=== PATIENT | male | born 1950 | race Caucasian/White ===

== ENCOUNTER 2016-11-17 12:20 | Inpatient (IN) | payer MEDICARE, BC ==
[2016-11-17 13:16] LABS: % BASOPHILS 0.2 % (0.0-2.0); % EOSINOPHILS 2.3 % (0.0-5.0); % LYMPHOCYTES 19.5 % (20.0-50.0); % MONOCYTES 7.6 % (2.0-10.0); % NEUTROPHILS 70.4 % (40.0-80.0); HEMATOCRIT 46.4 % (39.0-49.0); HEMOGLOBIN 15.6 gm/dL (12.6-17.4); MEAN CELL VOLUME 90.1 fl (80-99); MEAN CORPUSCULAR HEMOGLOBIN 30.2 pg (27.0-31.0); MEAN CORPUSCULAR HGB CONC 33.6 pg (28.0-36.0); MEAN PLATELET VOLUME 8.2 fl; NEUTROPHILE ABSOLUTE 6.2 Th/cmm (1.8-8.0); PLATELET COUNT 237 Th/cmm (150-400); RED BLOOD COUNT 5.15 Mil/cmm (3.80-5.80); RED CELL DISTRIBUTION WIDTH 12.3 % (11.5-20.0); WHITE BLOOD COUNT 8.8 Th/cmm (4.8-10.8)
[2016-11-17 13:25] LABS: ANION GAP 6.7 (7.0-16.0); BUN - UREA NITROGEN 15 mg/dL (7-25); BUN/CREATININE RATIO 18.8; CALCIUM SERUM 9.3 mg/dL (8.6-10.3); CARBON DIOXIDE 25.5 mEq/L (21.0-31.0); CHLORIDE 100 mEq/L (98-107); CHOLESTEROL 194 mg/dL (<200); CREATININE - SERUM 0.8 mg/dL (0.7-1.3); GLUCOSE 375 mg/dL (70-105); POTASSIUM SERUM 4.2 mEq/L (3.5-5.1); SODIUM SERUM 128 mEq/L (136-145); TRIGLYCERIDES 153 mg/dL (<150)
--- NOTE | 2016-11-17 14:22 | ED Physician Chart ---
Chief Complaint/HPI - Patient Information Date Seen:: 11/17/16 Time Seen:: 14:10 Chief Complaint:: medication non compliance History of Present Illness:: Patient states he has been refusing some of his medications for the last 2 weeks. The transfer document states he's been refusing medications for the last 2 months. Patient states he has been refusing some of his medications because they cause gastrointestinal upset. Allergies:: Allergies Allergy/AdvReac Type Severity Reaction Status Date / Time ampicillin Allergy RASH Verified 11/17/16 12:39 Vitals:: Vital Signs - 8 hr 11/17/16 11/17/16 12:25 13:13 Temp 98.0 F 98.1 F HR 90 74 RR 20 13 BP 183/95 136/71 O2 Sat % 98 99 Historian:: Patient Review:: Nurse's Note Reviewed Review of Systems - Review of Systems General/Constitutional: No fever, No chills Skin: No skin lesions Head: No headache Eyes: No loss of vision, No diplopia ENT: No earache, No sore throat Neck: No neck pain, No thyromegaly Cardio Vascular: No chest pain, No palpitations Pulmonary: No SOB GI: No nausea, No vomiting, Pain G/U: No dysuria Musculoskeletal: No bone or joint pain, No back pain, No muscle pain Psychiatric: Prior psych history Past Medical History - Past Medical History Past Medical History: HTN, Dyslipidemia, Other (tinnitus; diet noncompliance; cataract; polyneuropathy; atherosclerotic heart disease; osteoarthritis; chronic pain type 2 diabetes; hyperlipidemia; obesity; schizoaffective disorder ; bipolar disorder; medication noncompliance; dyspepsia) Family History: Diabetes Melitus, Other (grandmother had diabetes) Social History: Non Smoker, Alcohol Surgical History: other (fusion fourth-fifth lumbar vertebrae) Psychiatricy History: Bipolar, Other (schizoaffective disorder) Medication: Reviewed Labs/Radiology/EKG Results - Lab Results Results: Laboratory Tests 11/17/16 11/17/16 11/17/16 13:00 13:00 13:00 WBC 8.8 RBC 5.15 Hgb 15.6 Hct 46.4 MCV 90.1 MCH 30.2 MCHC Differential 33.6 RDW 12.3 Plt Count 237 MPV 8.2 Neutrophils % 70.4 Lymphocytes % 19.5 L Monocytes % 7.6 Eosinophils % 2.3 Basophils % 0.2 Sodium 128 L Potassium 4.2 Chloride 100 Carbon Dioxide 25.5 Anion Gap 6.7 L BUN 15 Creatinine 0.8 Est GFR ( Amer) > 60.0 Est GFR (Non-Af Amer) > 60.0 BUN/Creatinine Ratio 18.8 Glucose 375 H Hemoglobin A1c % 10.6 H Calcium 9.3 Triglycerides 153 H Cholesterol 194 LDL Cholesterol Direct 151 HDL Cholesterol 35 - EKG Interpretations Rhythm: normal sinus rhythm [place]: normal axis Rate: 83 Comments:: T wave changes noted ED Septic Shock - . Is Septic Shock (SBP<90, OR Lactate>4 mmol\L) present?: No - <6hrs of presentation: Vital Signs: Vital Signs - 8 hr 11/17/16 11/17/16 12:25 13:13 Temp 98.0 F 98.1 F HR 90 74 RR 20 13 BP 183/95 136/71 O2 Sat % 98 99 Reassessment (Disposition) - Reassessment Reassessment Condition:: Unchanged - Diagnosis Diagnosis:: Medication noncompliance; schizoaffective disorder; bipolar disorder; - Patient Disposition Admitted to:: [facility] Admitting Medical Physician:: Jeremy Devine Admitting Psych Physician:: Tiana Hebert Condition at Disposition:: Stable, Unchanged ED Discharge Plan - Patient Disposition Instructions: Psychosis
[2016-11-17 16:43] LABS: URINE BILIRUBIN NEGATIVE (NEGATIVE); URINE BLOOD NEGATIVE (NEGATIVE); URINE COLOR YELLOW; URINE GLUCOSE (UA) 500 mg/dL (NEGATIVE); URINE KETONE 15 mg/dL (NEGATIVE); URINE PH 5.5; URINE PROTEIN TRACE mg/dL (NEGATIVE); URINE UROBILINOGEN 0.2 E.U./dL (0.2 - 1.0)
[2016-11-17 16:44] LABS: URINE BACTERIA OCCASIONAL /hpf (NONE SEEN); URINE EPITHELIAL CELLS RARE /lpf (FEW); URINE RBC NONE SEEN /hpf (0-5); URINE WBC 0-2 /hpf (0-5)
[2016-11-17 17:10] VITALS: BP 150/84
[2016-11-17] MEDS ORDERED: Magnesium Hydroxide (MOM) 30 mL UDC PO PRN (17:20)
[2016-11-17] MEDS ORDERED: IBUPROFEN 200 MG PO PRN (17:20)
[2016-11-17] MEDS ORDERED: INSULIN ASPART, RECOMBINANT 100 UNITS/ML SUBQ ONE (17:30)
[2016-11-17] MEDS ORDERED: INSULIN HUMAN REGULAR 100 UNITS/ML UNIT SUBQ ONE (17:30)
[2016-11-17] MEDS: Atorvastatin Calcium 10 MG TAB PO SCH (21:00)
[2016-11-18] MEDS ORDERED: INSULIN ASPART SLIDING SCALE 100 UNITS/ML UNIT SUBQ SCH (07:30)
[2016-11-18 11:12] LABS: HEP B CORE IGM Negative (Negative); HEP C ANTIBODY <0.1 s/co ratio (0.0-0.9)
[2016-11-18] MEDS: Aspirin 81mg Chewable Tab PO SCH (11:49)
[2016-11-18] MEDS: INSULIN ASPART, RECOMBINANT 100 UNITS/ML SUBQ SCH ×3 (11:50→18:00)
[2016-11-18] MEDS: INSULIN HUMAN ISOPHANE (NPH) 100 UNITS/ML SUBQ SCH ×2 (11:51→18:00)
[2016-11-18] MEDS: POLYETHYLENE GLYCOL 3350 17 GM PACK PO SCH (11:52)
--- NOTE | 2016-11-18 14:01 | Psychosocial Evaluation ---
FACILITY: [facility] PATIENT NAME: KP MONTERO MR#: [id number] CLINICIAN: Tiana Hebert M.D. DATE OF ADMISSION: 11/17/2016 DATE OF VISIT: 11/18/2016 IDENTIFYING INFORMATION: The patient is a 66-year-old male. CHIEF COMPLAINT: "I didn't take my medication." HISTORY OF PRESENT ILLNESS: The patient referred from detention because of agitation, irritability, hard to redirect. Apparently, the patient has been ____ to the staff, has been refusing medication for the last 2 months. He has been referred because of gastrointestinal upset. When I talked to the patient, he reported that the reason for his refusal was he talk to the ____ and he told him that he has a right to refuse his medication. He said he was not refusing the Haldol that is supposed to be on and the staff was forgetting to give it to him, but he is refusing blood pressure and statin medication. The patient reports minimizing the events that led to his admission, does not acknowledge that he was agitated or combative. He denies any current substance abuse. The patient reportedly diagnosed schizophrenic, bipolar, but he does not believe he has any mental illness. PAST PSYCHIATRIC HISTORY: The patient reports he was hospitalized many times. He was last hospitalized 5 years ago when he went to this detention ____. He reports that last hospitalized 5 years ago. He was hospitalized 3 times. The patient reports he has been on Haldol decanoate every 2 weeks. He is not sure of the dosages. He denies any prior suicide attempt. MEDICAL HISTORY: The patient reported that he was unable to walk for the past 5 years since he went to a detention, but he reports no reason was found and uses a wheelchair. The patient reported the patient is diabetic, hypertension, high cholesterol. ALLERGIES: HE REPORTS HE IS ALLERGIC TO AMPICILLIN, BUT HE TOLD ME ALSO IS ALLERGIC TO ALL ANTIBIOTICS. FAMILY AND SOCIAL HISTORY: The patient is long time, was for 3 years, no children. He lives in a detention, has ever college education, used to be a tanker truck driver, ____ own [employer], used to use alcohol, quit 5 years ago when he went to a detention, but it was never a problem, never been treatment. He reports okay ____. No substance abuse. No family psychotic disorder, suicide or substance abuse. He denies having any legal problem. MENTAL STATUS EXAMINATION: The patient is appropriately dressed, not well groomed. He was in bed. He looked somewhat disheveled. He was alert. He was oriented to place, person, and time. He is not sure why he is here. He admits, however, to feeling depressed. He denies any current auditory or visual hallucination or paranoia. He reports that it was his right to refuse medication. Denies having any legal problem. He denies any intent to harm anybody. He seems to have average intelligence, just by able to give information and fund of knowledge and knowledge of the [employer] of [facility], concentration is fair, able to answer questions appropriately. ____ forward and backward. Long-term memory is good for age and date of . Recent memory is good with events led to coming here, but he is not very precise about it. Immediate memory is good, ____ his insight about his illness is poor. He does not believe he has psychiatric illness. Judgment is poor, refusing medication. IMPRESSION: AXIS I: Schizoaffective disorder, history of alcohol abuse. MEDICAL DIAGNOSES: Hypertension, diabetes mellitus, unable to walk, high cholesterol. His assets, he is accepting treatment. Negative poor coping skills. INITIAL TREATMENT PLAN: We will get the names of the medication that he was on before coming here. I will start him on antidepressant as well. We will do group therapy, milieu therapy, individual therapy. ESTIMATED LENGTH OF STAY: 3-7 days. DISCHARGE CRITERIA: Decrease in depression, feeling better, compliant with his medication after discharge, outpatient treatment. JOB# [id number] ANTONIO
[2016-11-18] MEDS: Atorvastatin Calcium 10 MG TAB PO SCH (20:53)
[2016-11-19] MEDS: INSULIN ASPART, RECOMBINANT 100 UNITS/ML SUBQ SCH ×2 (06:46→16:32)
[2016-11-19] MEDS: POLYETHYLENE GLYCOL 3350 17 GM PACK PO SCH (08:49)
[2016-11-19] MEDS: Aspirin 81mg Chewable Tab PO SCH ×2 (08:53→09:00)
[2016-11-19] MEDS: Escitalopram Oxalate 5 mg Tab PO SCH ×2 (08:53→09:10)
[2016-11-19] MEDS: INSULIN HUMAN ISOPHANE (NPH) 100 UNITS/ML SUBQ SCH ×2 (08:58→16:44)
[2016-11-19] MEDS: Atorvastatin Calcium 10 MG TAB PO SCH (20:19)
--- NOTE | 2016-11-20 06:16 | Progress Notes ---
Covering for Dr. Tiana Hebert. SUBJECTIVE: The patient was seen and evaluated. The patient's chart reviewed, discussed with the staff members. Overnight staff members reported that the patient has been isolating his room, not taking his medications. Today on [id number] evaluation, the patient reports that the medications are causing him to have shooting sharp pains on his feet; therefore, he has not taken it. MENTAL STATUS EXAMINATION: Paranoid, delusional, poor insight, judgment and impulse control. ASSESSMENT AND PLAN: The patient is a 66-year-old male with a previous history of paranoid schizophrenia who had been noncompliant with medications and transferred from a detention home facility who continues to be noncompliant with medications and very melancholic and paranoid also about medications and refusing. We will continue monitoring and evaluating. We will continue with the current primary treatment plan and goals, which includes aspirin ____ and benazepril, Lexapro 5 mg and the Haldol Decanoate that is pending. Due to the patient's still active psychotic symptoms, noncompliance of medications, ____ formulate safe plan outside in the structured environment. JOB# [id number]
[2016-11-20] MEDS: INSULIN ASPART, RECOMBINANT 100 UNITS/ML SUBQ SCH ×2 (07:00→16:59)
[2016-11-20] MEDS: POLYETHYLENE GLYCOL 3350 17 GM PACK PO SCH (09:01)
[2016-11-20] MEDS: Escitalopram Oxalate 5 mg Tab PO SCH (09:05)
[2016-11-20] MEDS: Aspirin 81mg Chewable Tab PO SCH (09:09)
[2016-11-20] MEDS: INSULIN HUMAN ISOPHANE (NPH) 100 UNITS/ML SUBQ SCH (09:15)
[2016-11-20] MEDS: INSULIN 70/30 100 UNITS/ML SUBQ SCH (16:32)
[2016-11-20] MEDS: Atorvastatin Calcium 10 MG TAB PO SCH (21:10)
--- NOTE | 2016-11-20 22:16 | Progress Notes ---
SUBJECTIVE: The patient is seen, chart reviewed, discussed with staff. The patient is currently in the hospital for history of schizophrenia, poor medication compliance coming from a care home facility, was refusing medications, becoming more agitated and irritable and the staff could not control him as he was also becoming more paranoid, delusional, and psychotic. He states he continues to feel depressed, withdrawn, recognizes he is here because he was refusing care. The patient notes he feels "okay." His symptoms do persist, appearing distracted still with psychotic symptoms. ASSESSMENT AND PLAN: The patient with history of poor medication compliance, psychotic decompensation, mood decompensation, not safe for a lower level of care at this time. The patient is currently on Lexapro and Haldol decanoate. We will continue to monitor working on the patient's coping, insight and compliance issues. JOB# [id number]
[2016-11-21] MEDS: INSULIN ASPART, RECOMBINANT 100 UNITS/ML SUBQ SCH ×2 (06:30→17:17)
[2016-11-21] MEDS: Escitalopram Oxalate 5 mg Tab PO SCH (08:53)
[2016-11-21] MEDS: Aspirin 81mg Chewable Tab PO SCH (08:53)
[2016-11-21] MEDS: POLYETHYLENE GLYCOL 3350 17 GM PACK PO SCH (08:53)
[2016-11-21] MEDS: INSULIN HUMAN ISOPHANE (NPH) 100 UNITS/ML SUBQ SCH (10:13)
--- NOTE | 2016-11-21 16:04 | History & Physical ---
ADMITTING PHYSICIAN: Dr. Hebert. REASON FOR ADMISSION: Psychiatric disorder. HISTORY OF PRESENT ILLNESS: This is a 66-year-old with underlying history of diabetes mellitus, hypertension, chronic constipation, obesity, hyperlipidemia who was admitted to [facility] for evaluation of underlying psychiatric illness by Dr. Hebert. Dr. Hebert requested medical H and P on this patient. The patient stated "he is doing fine." The patient has been refusing his insulin. The patient thinks that insulin causes his leg pain. He denied any chest pain, no shortness of breath, dizziness, palpitations or other complaints. PAST MEDICAL HISTORY: As per HPI. PAST SURGICAL HISTORY: No significant past surgical history. FAMILY HISTORY: Noncontributory. SOCIAL HISTORY: Lives in a nursing facility. No reported alcohol, tobacco or street drug use. CURRENT MEDICATIONS: Medication reconciliation is reviewed. ALLERGIES: TO PENICILLIN. REVIEW OF SYSTEMS: As per HPI, the 12-point system reviewed and is negative. PHYSICAL EXAMINATION: VITAL SIGNS: Temperature 97.9, pulse 77, respirations 20, blood pressure 120/72. HEART: S1, S2 normal. LUNGS: Clear to auscultation bilaterally. ABDOMEN: Soft, nontender, no guarding, no rigidity. NEUROLOGIC: The patient is awake, alert, confused, able to follow commands. No focal deficits. EXTREMITIES: No edema. AVAILABLE LABORATORY DATA: Have been reviewed. ASSESSMENT: 1. Insulin-dependent diabetes mellitus. 2. Hypertension. 3. Hyperlipidemia. 4. Chronic constipation 5. Noncompliance to treatment. 6. Psych disorder. 7. Obesity. PLAN: Discussed with the patient regarding need for insulin. The patient still refused insulin. We will continue insulin sliding scale and Accu-Cheks. Admission medications were reconciled. We will continue patient's blood pressure and cholesterol medications. Psych eval per psychiatrist. Discussed with the patient and nursing staff regarding plan of care. JOB# [id number]
[2016-11-21] MEDS: INSULIN 70/30 100 UNITS/ML SUBQ SCH (17:36)
[2016-11-21] MEDS: Atorvastatin Calcium 10 MG TAB PO SCH (20:47)
--- NOTE | 2016-11-21 23:54 | Progress Notes ---
Case was discussed with staff of the patient, reviewed records. The patient apparently has been reported to be refusing oral medications. When I talked to him, the patient wanted to be only on oral medication. I have discussed with him the fact that he has not been taking his Lexapro, and that he needs to take medications by mouth to be able to . He said that he hates injection. He gets Haldol decanoate injection every 2 weeks and he does not like that. He continues to be unpredictable, impulsive, needing redirection and I will ask the staff to call his brother who is conservator to see if he could be given medication by injection if he refuses oral medication and the patient tends to isolate himself. Continues to be paranoid and delusional about having shooting pain in his face with the medication, which he to some people and not other people, and we will continue to work with the patient in group therapy, milieu therapy, and adjust medication as needed. JOB# [id number]
[2016-11-22] MEDS: INSULIN ASPART, RECOMBINANT 100 UNITS/ML SUBQ SCH ×2 (06:48→16:59)
[2016-11-22] MEDS: Aspirin 81mg Chewable Tab PO SCH (08:42)
[2016-11-22] MEDS: POLYETHYLENE GLYCOL 3350 17 GM PACK PO SCH (08:43)
[2016-11-22] MEDS: INSULIN HUMAN ISOPHANE (NPH) 100 UNITS/ML SUBQ SCH (09:24)
[2016-11-22] MEDS: Escitalopram Oxalate 5 mg Tab PO SCH (09:24)
[2016-11-22] MEDS: INSULIN 70/30 100 UNITS/ML SUBQ SCH (17:36)
[2016-11-22] MEDS: Atorvastatin Calcium 10 MG TAB PO SCH (20:30)
--- NOTE | 2016-11-23 00:51 | Progress Notes ---
Case was discussed with staff of the patient, reviewed records. The patient apparently started taking Lexapro and I did discuss with him the side effects. He reported that he really does not feel depressed; however, he has been neglecting his hygiene and grooming, isolating himself. He has been unable to make safe plan for self-care. He is not sure when his Haldol Decanoate is due and I asked the staff to call the facility and find out when it is supposed to be given, so we can give it to him. He reports he has not taken it in 2 months and ____ fine without it, but I doubt that this is true. He is still looking disheveled, disorganized, internally preoccupied and unable to make safe plan for self-care. No side effects of the medication, no sedation and no nausea. His lab work showed urinalysis with leukocyte urea and ketones and TSH within normal range with high triglyceride at 153, minimal elevation, the rest within normal range and he has low serum sodium level and high blood sugar and CBC showed low lymphocytes. The rest within normal range. I will be consulting the medical doctor regarding that; Dr. Devine and we will continue to work with the patient in group therapy and milieu therapy and adjusting medications as needed. JOB# [id number]
[2016-11-23] MEDS: INSULIN ASPART, RECOMBINANT 100 UNITS/ML SUBQ SCH ×2 (06:34→17:33)
[2016-11-23] MEDS: POLYETHYLENE GLYCOL 3350 17 GM PACK PO SCH (10:34)
[2016-11-23] MEDS: Aspirin 81mg Chewable Tab PO SCH (10:39)
[2016-11-23] MEDS: Escitalopram Oxalate 5 mg Tab PO SCH (10:40)
[2016-11-23] MEDS: INSULIN HUMAN ISOPHANE (NPH) 100 UNITS/ML SUBQ SCH (10:49)
[2016-11-23] MEDS: INSULIN 70/30 100 UNITS/ML SUBQ SCH (17:39)
[2016-11-23] MEDS: Atorvastatin Calcium 10 MG TAB PO SCH (20:44)
--- NOTE | 2016-11-24 03:36 | Progress Notes ---
Case discussed with the staff of the patient, reviewed records. The patient has been taking his medications. He continues to, however, be unpredictable, impulsive. He is minimizing everything. He looks disheveled, disorganized, internally preoccupied. The staff is supposed to give the dose of Haldol Decanoate, which he used to be on every 2 weeks and we do have a permission from the conservator according to the staff to give it to him and so far no side effects with the medications, no sedation, no nausea, no extrapyramidal symptoms. We will continue to work with the patient in group therapy, milieu therapy, adjust medications as needed. JOB# [id number]
[2016-11-24] MEDS: INSULIN ASPART, RECOMBINANT 100 UNITS/ML SUBQ SCH ×2 (06:57→17:48)
[2016-11-24] MEDS: Escitalopram Oxalate 5 mg Tab PO SCH (08:23)
[2016-11-24] MEDS: Aspirin 81mg Chewable Tab PO SCH (08:23)
[2016-11-24] MEDS: INSULIN HUMAN ISOPHANE (NPH) 100 UNITS/ML SUBQ SCH (08:24)
[2016-11-24] MEDS: INSULIN 70/30 100 UNITS/ML SUBQ SCH (17:46)
[2016-11-24] MEDS: POLYETHYLENE GLYCOL 3350 17 GM PACK PO SCH (17:49)
[2016-11-24] MEDS: Atorvastatin Calcium 10 MG TAB PO SCH (20:45)
[2016-11-25] MEDS: Maalox 30 mL Cup PO PRN (00:18)
[2016-11-25] MEDS: INSULIN ASPART, RECOMBINANT 100 UNITS/ML SUBQ SCH ×2 (06:48→16:40)
--- NOTE | 2016-11-25 08:57 | Progress Notes ---
Case was discussed with staff of the patient, reviewed records. The patient reported that he is feeling a little bit ____ taking the Lexapro; however, he did take his Haldol Decanoate injection yesterday and today was the first time, he complained of feeling ____. He has been on Lexapro for a few days now. He continues to stay in bed, looking disheveled, disorganized, internally preoccupied. He has been compliant now with the medication ____ with Haldol Decanoate, does not need prompting to take it and we will continue to work with the patient in group therapy, milieu therapy, and adjust the medication as needed. JOB# [id number]
[2016-11-25] MEDS: POLYETHYLENE GLYCOL 3350 17 GM PACK PO SCH (09:26)
[2016-11-25] MEDS: Escitalopram Oxalate 5 mg Tab PO SCH (09:26)
[2016-11-25] MEDS: INSULIN HUMAN ISOPHANE (NPH) 100 UNITS/ML SUBQ SCH (09:28)
[2016-11-25] MEDS: Aspirin 81mg Chewable Tab PO SCH (09:36)
[2016-11-25] MEDS: INSULIN 70/30 100 UNITS/ML SUBQ SCH (16:39)
[2016-11-25] MEDS: Atorvastatin Calcium 10 MG TAB PO SCH (20:44)
--- NOTE | 2016-11-25 23:35 | Progress Notes ---
SUBJECTIVE: The patient seen, chart reviewed, discussed with staff. I have reviewed the reasons for the patient's hospitalization. The patient noting, "I cannot walk." The patient is still disorganized, unkempt, preoccupied, disoriented. On a positive note, he has been medication compliant, no side effects, but he remains isolative and withdrawn, states he was living in a [facility]. ASSESSMENT AND PLAN: The patient remains disheveled, isolative, withdrawn, still with concerns for psychosis. We will continue to monitor due to his impulsivity due to the persistence of his behaviors on symptoms, they are concerns about safety, but improvement has been noted. JOB# [id number]
[2016-11-26] MEDS: Maalox 30 mL Cup PO PRN (00:29)
[2016-11-26] MEDS: INSULIN ASPART, RECOMBINANT 100 UNITS/ML SUBQ SCH ×2 (06:32→16:55)
[2016-11-26] MEDS: Aspirin 81mg Chewable Tab PO SCH (08:49)
[2016-11-26] MEDS: INSULIN HUMAN ISOPHANE (NPH) 100 UNITS/ML SUBQ SCH (08:50)
[2016-11-26] MEDS: POLYETHYLENE GLYCOL 3350 17 GM PACK PO SCH (08:50)
[2016-11-26] MEDS: Escitalopram Oxalate 5 mg Tab PO SCH (09:01)
[2016-11-26] MEDS: INSULIN 70/30 100 UNITS/ML SUBQ SCH (16:54)
[2016-11-26] MEDS: Atorvastatin Calcium 10 MG TAB PO SCH (20:51)
--- NOTE | 2016-11-27 02:26 | Progress Notes ---
SUBJECTIVE: The patient was seen, chart reviewed, and discussed with staff. The patient is under the care of Dr. Hebert. He remains flat, depressed, noted to be disorganized, unkempt, preoccupied, still symptomatic, not safe for a lower level of care, not really able to verbalize the basic plan for food, clothing, and group home. Unable to be cared for at a lower level of care. ASSESSMENT: The patient remains disheveled, isolative, withdrawn, still with concerns about psychosis, still has a flat affect, depressed, and poor impulse control. PLAN: Continue to monitor, monitor closely for any undue side effects. The patient has been medication compliant. JOB# [id number]
[2016-11-27] MEDS: INSULIN ASPART, RECOMBINANT 100 UNITS/ML SUBQ SCH ×2 (06:40→17:14)
[2016-11-27] MEDS: POLYETHYLENE GLYCOL 3350 17 GM PACK PO SCH (08:51)
[2016-11-27] MEDS: Escitalopram Oxalate 5 mg Tab PO SCH (08:52)
[2016-11-27] MEDS: Aspirin 81mg Chewable Tab PO SCH (08:52)
[2016-11-27] MEDS: INSULIN HUMAN ISOPHANE (NPH) 100 UNITS/ML SUBQ SCH (09:51)
[2016-11-27] MEDS: INSULIN 70/30 100 UNITS/ML SUBQ SCH (17:23)
[2016-11-27] MEDS: Atorvastatin Calcium 10 MG TAB PO SCH (20:30)
--- NOTE | 2016-11-27 23:49 | Progress Notes ---
SUBJECTIVE: The patient is seen, chart reviewed, discussed with staff. The patient is currently under the care of Dr. Hebert. The patient notes that he still feels depressed, still preoccupied, symptomatic, concerns for his ability to be cared for at a lower level of care. States he is sleeping well, eating well. He is complaining of a feeling "sick" and thinks it is____ the depression medication that he is on, medications were reviewed. Currently, on Lexapro 5 mg daily, this medication may be causing some stomach upset and the patient will lower dose to 2.5 mg to see if the patient tolerates this dose better. Over the next few days, dose can be titrated back to 5 mg based on tolerability. ASSESSMENT: The patient remains symptomatic, depressed, withdrawn, continued concerns about his ability to be cared for at a lower level of care and he still appears internally preoccupied. PLAN: We will lower Lexapro, continue to monitor closely. [facility]# [id number]
[2016-11-28] MEDS: INSULIN ASPART, RECOMBINANT 100 UNITS/ML SUBQ SCH ×2 (06:30→17:04)
[2016-11-28] MEDS: Aspirin 81mg Chewable Tab PO SCH (08:56)
[2016-11-28] MEDS: INSULIN HUMAN ISOPHANE (NPH) 100 UNITS/ML SUBQ SCH (08:57)
[2016-11-28] MEDS: Escitalopram Oxalate 5 mg Tab PO SCH (08:57)
[2016-11-28] MEDS: POLYETHYLENE GLYCOL 3350 17 GM PACK PO SCH (10:07)
--- NOTE | 2016-11-28 16:42 | General Progress Note ---
Subjective - Review of Systems Service Date: 11/28/16 Subjective: Patient seen and examined doing fine patient requested to stop evening BP meds Objective - Results Result Diagrams: 11/17/16 13:00 11/17/16 13:00 Recent Labs: Laboratory Last Values WBC 8.8 Th/cmm (4.8-10.8) 11/17/16 13:00 RBC 5.15 Mil/cmm (3.80-5.80) 11/17/16 13:00 Hgb 15.6 gm/dL (12.6-17.4) 11/17/16 13:00 Hct 46.4 % (39.0-49.0) 11/17/16 13:00 MCV 90.1 fl (80-99) 11/17/16 13:00 MCH 30.2 pg (27.0-31.0) 11/17/16 13:00 MCHC Differential 33.6 pg (28.0-36.0) 11/17/16 13:00 RDW 12.3 % (11.5-20.0) 11/17/16 13:00 Plt Count 237 Th/cmm (150-400) 11/17/16 13:00 MPV 8.2 fl 11/17/16 13:00 Neutrophils % 70.4 % (40.0-80.0) 11/17/16 13:00 Lymphocytes % 19.5 % (20.0-50.0) L 11/17/16 13:00 Monocytes % 7.6 % (2.0-10.0) 11/17/16 13:00 Eosinophils % 2.3 % (0.0-5.0) 11/17/16 13:00 Basophils % 0.2 % (0.0-2.0) 11/17/16 13:00 Sodium 128 mEq/L (136-145) L 11/17/16 13:00 Potassium 4.2 mEq/L (3.5-5.1) 11/17/16 13:00 Chloride 100 mEq/L (98-107) 11/17/16 13:00 Carbon Dioxide 25.5 mEq/L (21.0-31.0) 11/17/16 13:00 Anion Gap 6.7 (7.0-16.0) L 11/17/16 13:00 BUN 15 mg/dL (7-25) 11/17/16 13:00 Creatinine 0.8 mg/dL (0.7-1.3) 11/17/16 13:00 Est GFR ( Amer) > 60.0 ml/min (>90) 11/17/16 13:00 Est GFR (Non-Af Amer) > 60.0 ml/min 11/17/16 13:00 BUN/Creatinine Ratio 18.8 11/17/16 13:00 Glucose 375 mg/dL (70-105) H 11/17/16 13:00 POC Glucose 103 MG/DL (70 - 105) 11/28/16 06:04 Hemoglobin A1c % 10.6 % (4.0-6.0) H 11/17/16 13:00 Calcium 9.3 mg/dL (8.6-10.3) 11/17/16 13:00 Triglycerides 153 mg/dL (<150) H 11/17/16 13:00 Cholesterol 194 mg/dL (<200) 11/17/16 13:00 LDL Cholesterol Direct 151 mg/dL (75-193) 11/17/16 13:00 HDL Cholesterol 35 mg/dL (23-92) 11/17/16 13:00 TSH 2.64 uIU/ml (0.34-5.60) 11/17/16 13:00 Urine Source CLEAN C 11/17/16 13:05 Urine Color YELLOW 11/17/16 13:05 Urine Clarity CLEAR (CLEAR) 11/17/16 13:05 Urine pH 5.5 11/17/16 13:05 Ur Specific [place] 1.015 (1.005-1.030) 11/17/16 13:05 Urine Protein TRACE mg/dL (NEGATIVE) 11/17/16 13:05 Urine Glucose (UA) 500 mg/dL (NEGATIVE) H 11/17/16 13:05 Urine Ketones 15 mg/dL (NEGATIVE) H 11/17/16 13:05 Urine Blood NEGATIVE (NEGATIVE) 11/17/16 13:05 Urine Nitrate NEGATIVE (NEGATIVE) 11/17/16 13:05 Urine Bilirubin NEGATIVE (NEGATIVE) 11/17/16 13:05 Urine Urobilinogen 0.2 E.U./dL (0.2 - 1.0) 11/17/16 13:05 Ur Leukocyte Esterase NEGATIVE (NEGATIVE) 11/17/16 13:05 Urine RBC NONE SEEN /hpf (0-5) 11/17/16 13:05 Urine WBC 0-2 /hpf (0-5) 11/17/16 13:05 Ur Epithelial Cells RARE /lpf (FEW) 11/17/16 13:05 Urine Bacteria OCCASIONAL /hpf (NONE SEEN) 11/17/16 13:05 RPR NONREACTIVE (NONREACTIVE) 11/17/16 13:00 Hepatitis A IgM Ab Negative (Negative) 11/17/16 13:00 Hep Bs Antigen Negative (Negative) 11/17/16 13:00 Hep B Core IgM Ab Negative (Negative) 11/17/16 13:00 Hepatitis C Antibody <0.1 s/co ratio (0.0-0.9) 11/17/16 13:00 - Physical Exam Vitals and I&O: Vital Signs Temp 98.2 F 11/28/16 15:23 Pulse 70 11/28/16 15:23 Resp 20 11/28/16 15:23 BP 125/77 11/28/16 15:23 Pulse Ox 97 11/28/16 15:23 Intake & Output 11/27/16 11/28/16 11/28/16 18:59 06:59 18:59 Intake Total 950 120 Balance 950 120 Intake: Oral 950 120 Other: # Voids 3 1 # Bowel Movements 1 1 Active Medications: Current Medications Acetaminophen (Tylenol) 650 mg PO Q4H PRN PRN Reason: MILD PAIN OR TEMP > 101.0 Stop: 01/16/17 17:19 Al Hydrox/Mg Hydrox/Simethicone (Maalox) 30 ml PO Q6H PRN PRN Reason: DYSPEPSIA Stop: 01/16/17 17:19 Last Admin: 11/26/16 00:29 Dose: 30 ml Aspirin (Aspirin Chewable) 81 mg PO DAILY MANUEL Stop: 01/17/17 08:59 Last Admin: 11/28/16 08:56 Dose: Not Given Atorvastatin Calcium (Lipitor) 20 mg PO HS MANUEL Stop: 01/16/17 20:59 Last Admin: 11/27/16 20:30 Dose: 20 mg Benazepril HCl (Lotensin) 20 mg PO DAILY MANUEL Stop: 01/17/17 08:59 Last Admin: 11/28/16 08:56 Dose: 20 mg Docusate Sodium (Colace) 250 mg PO DAILY [facility] Stop: 01/17/17 08:59 Last Admin: 11/28/16 08:57 Dose: 250 mg Haloperidol Decanoate (Haldol Dec) 25 mg IM QMONTH MANUEL PRN Reason: Protocol Stop: 01/22/17 12:59 Last Admin: 11/23/16 13:15 Dose: 25 mg Ibuprofen (Advil) 200 mg PO Q4H PRN PRN Reason: Pain (Mild) Stop: 01/16/17 17:54 Last Admin: 11/26/16 23:41 Dose: 200 mg Insulin Aspart (Novolog) 0 units SUBQ BIDAC MANUEL PRN Reason: Protocol Stop: 01/17/17 08:59 Last Admin: 11/28/16 06:30 Dose: Not Given Insulin Human Isoph/Insulin Regular (Novolin 70/30) 35 units SUBQ QPM MANUEL PRN Reason: Protocol Stop: 01/17/17 16:59 Last Admin: 11/27/16 17:23 Dose: 35 units Insulin Human NPH (Novolin N) 40 units SUBQ QAM MANUEL PRN Reason: Protocol Stop: 01/17/17 08:59 Last Admin: 11/28/16 08:57 Dose: 40 units Lorazepam (Ativan) 0.5 mg PO Q4HR PRN; Protocol PRN Reason: Anxiety Stop: 12/17/16 20:21 Last Admin: 11/27/16 08:52 Dose: 0.5 mg Magnesium Hydroxide (Milk Of Magnesia) 30 ml PO DAILY PRN PRN Reason: Constipation Stop: 01/16/17 17:19 Polyethylene Glycol (Miralax) 17 gm PO DAILY [facility] Stop: 01/17/17 08:59 Last Admin: 11/28/16 10:07 Dose: 17 gm Zolpidem Tartrate (Ambien) 5 mg PO HS PRN PRN Reason: Insomnia Stop: 01/16/17 20:21 Cardiovascular: Regular rate Lungs: Clear to auscultation Assessment/Plan - Assessment Assessment: HTN DM II HYPERLIPIDEMIA PSYCH DISORDER - Plan Plan: Patient BP seems fairly stable will dc Metoprolol will continue Lisinopril Monitor BP Contiinue Accuchek and DM meds Plan of care discussed with nursing staff Psych managment per psychiatrist Nutritional Asmnt/Malnutr-PDOC - Dietary Evaluation Malnutrition Findings (Please click <Entered> for more info): Nutritional Asmnt/Malnutrition Start: 11/18/16 14: 20 Text: Status: Complete Freq: Document 11/18/16 14:21 GSCHELSI (Rec: 11/18/16 14:35 [email or web address]) Nutritional Asmnt/Malnutrition Patient General Information Nutritional Screening High Risk Screening Diagnosis Psychosis NOS Pertinent Medical Hx/Surgical Hx Schizoaffective disorder, hx alcohol abuse, HTN, DM, high cholesterol Subjective Information 66 year old male from SNF. Pt was asleep during visit, unable to be woken up. [facility], pt appears forgetful, was refusing medications including insulin, needing explanation/reminder on purpose of insulin. Current Diet Order/ Nutrition Support CCHO, BECKA Pertinent Medications Maalox, Lipitor, Colace, Novolog, Novolin, MOM, Miralax Pertinent Labs 11/17: cholesterol 194, glucose 375, A1c 10.6 Nutritional Hx/Data Height 1.7 m Height (Calculated Centimeters) 170.2 Current Weight (lbs) 96.388 kg Weight (Calculated Kilograms) 96.4 Weight (Calculated Grams) 31518.4 [place] Body Weight 148 Weight Status Obese GI Symptoms Usual diet at home [facility] [place] Skin Integrity/Comment: Ady 18. Skin intact. Estimated Nutritional Goals Calories/Kcals/Kg [id number]/74.6kg Kcals Calculated 1805-2238kcal (25-30kcal/kg) Protein: Adj wt of IBW Protein Calculated 75g (1g/kg) Fluid: ml 1805-2238ml (1ml/kcal) Nutritional Problem 1. Problem Problem Altered nutrition related laboratory values related to Etiology DM aeb Signs/Symptoms: glucose 375, A1c 10.6 Intervention/Recommendation Comments 1. Recommend [id number]. Expected Outcomes/Goals Expected Outcomes/Goals 1. PO intake to meet at least 75% of estimated nutritional needs.
[2016-11-28] MEDS: INSULIN 70/30 100 UNITS/ML SUBQ SCH (17:04)
[2016-11-28] MEDS: Atorvastatin Calcium 10 MG TAB PO SCH (21:09)
[2016-11-28] MEDS: Maalox 30 mL Cup PO PRN (21:11)
--- NOTE | 2016-11-28 22:39 | Progress Notes ---
DATE: 11/28/2016 Case was discussed with staff of the patient, reviewed records. The patient complained that since he took the Lexapro, he is not feeling well, he is feeling weird. He would like to be off the Lexapro, though it was decreased by Dr. Canales to 2.5 mg at bedtime, complained that making him feel nauseated and weird. He continues to be unpredictable and impulsive. We started him on the Haldol Decanoate. He continues to look disheveled, disorganized, internally preoccupied. No side effects with the medication, no sedation, no nausea, no extrapyramidal symptoms, and we will continue to work with the patient in group therapy, milieu therapy, and adjust the medications as needed. JOB# [id number]
[2016-11-29] MEDS: INSULIN ASPART, RECOMBINANT 100 UNITS/ML SUBQ SCH ×2 (06:59→16:50)
[2016-11-29] MEDS: POLYETHYLENE GLYCOL 3350 17 GM PACK PO SCH ×2 (09:04→09:15)
[2016-11-29] MEDS: Aspirin 81mg Chewable Tab PO SCH (09:04)
[2016-11-29] MEDS: INSULIN HUMAN ISOPHANE (NPH) 100 UNITS/ML SUBQ SCH (09:06)
[2016-11-29] MEDS: INSULIN 70/30 100 UNITS/ML SUBQ SCH (16:51)
[2016-11-29] MEDS: Atorvastatin Calcium 10 MG TAB PO SCH (20:49)
[2016-11-29] MEDS: Maalox 30 mL Cup PO PRN (20:52)
--- NOTE | 2016-11-29 23:28 | Progress Notes ---
DATE: 11/29/2016 Case was discussed with staff of the patient, reviewed records. The patient seems____ better now that he is off Lexapro, it made him feel weird, he is happy that he is off it. He continues, however, to look disheveled, internally preoccupied. Continues to not participate in any meaningful conversation. He is sleeping better, eating better; however, continues to be unpredictable, impulsive, continues to have poor insight. No side effects with the medication, no sedation, no nausea, no extrapyramidal symptoms. He got the Haldol decanoate injection that he gets every 2 weeks. I will continue the patient in group therapy, milieu therapy, adjust medication as needed. JOB# [id number]
[2016-11-30] MEDS: INSULIN ASPART, RECOMBINANT 100 UNITS/ML SUBQ SCH ×2 (06:44→17:08)
[2016-11-30] MEDS: POLYETHYLENE GLYCOL 3350 17 GM PACK PO SCH (08:44)
[2016-11-30] MEDS: INSULIN HUMAN ISOPHANE (NPH) 100 UNITS/ML SUBQ SCH (08:44)
[2016-11-30] MEDS: Aspirin 81mg Chewable Tab PO SCH (08:45)
[2016-11-30] MEDS: INSULIN 70/30 100 UNITS/ML SUBQ SCH (17:08)
[2016-11-30] MEDS: Atorvastatin Calcium 10 MG TAB PO SCH (20:32)
--- NOTE | 2016-12-01 02:07 | Progress Notes ---
DATE: 11/30/2016 Case was discussed with staff of the patient, reviewed records. The patient continues to stay in bed. Continues to isolate himself. I did take him off the Lexapro. He is on Haldol Decanoate 25 mg every 2 weeks with no side effects, no sedation, no nausea, and no extrapyramidal symptoms. He is so far compliant with the medications. He was noncompliant with the medication when he was in the half-way. So at this point, it seems like he has been well on his medications except that he was no side effects, no sedation, no nausea, and no extrapyramidal symptoms. We will continue to work with the patient in group therapy, milieu therapy, and adjust medication as needed. JOB# [id number]
[2016-12-01] MEDS: INSULIN ASPART, RECOMBINANT 100 UNITS/ML SUBQ SCH ×2 (06:57→17:19)
[2016-12-01] MEDS: POLYETHYLENE GLYCOL 3350 17 GM PACK PO SCH (09:05)
[2016-12-01] MEDS: Aspirin 81mg Chewable Tab PO SCH (09:48)
[2016-12-01] MEDS: INSULIN HUMAN ISOPHANE (NPH) 100 UNITS/ML SUBQ SCH (09:52)
[2016-12-01] MEDS: INSULIN 70/30 100 UNITS/ML SUBQ SCH (17:23)
[2016-12-01] MEDS: Atorvastatin Calcium 10 MG TAB PO SCH (21:42)
--- NOTE | 2016-12-02 01:54 | Progress Notes ---
DATE: 12/01/2016 Case was discussed with staff of the patient, reviewed records. The patient continues to be somewhat irritable, isolate himself, poor ADLs. He refused to take Lexapro. I discontinued it because he is complaining side effects with it. He was unable to tell me the date. He knew he was in a hospital. He is acting much better compared to when he was at the [facility] where he was refusing medication and aggressive with staff. He is back on the Haldol Decanoate every 2 weeks with no side effects, no sedation, no nausea, so far and ____ behavior is much better. Sleeping better and eating better. No side effects with the medication, no sedation, no nausea, and no extrapyramidal symptoms. We will continue to work with the patient in group therapy, milieu therapy, and adjust the medication as needed. JOB# [id number]
[2016-12-02] MEDS: INSULIN ASPART, RECOMBINANT 100 UNITS/ML SUBQ SCH (06:42)
[2016-12-02] MEDS: Aspirin 81mg Chewable Tab PO SCH (09:04)
[2016-12-02] MEDS: INSULIN HUMAN ISOPHANE (NPH) 100 UNITS/ML SUBQ SCH (09:05)
[2016-12-02] MEDS: POLYETHYLENE GLYCOL 3350 17 GM PACK PO SCH (09:06)
--- NOTE | 2016-12-02 13:09 | General Progress Note ---
Subjective - Review of Systems Service Date: 12/02/16 Subjective: Patient seen and examined doing fine denied any complaints Objective - Results Result Diagrams: 11/17/16 13:00 11/17/16 13:00 Recent Labs: Laboratory Last Values WBC 8.8 Th/cmm (4.8-10.8) 11/17/16 13:00 RBC 5.15 Mil/cmm (3.80-5.80) 11/17/16 13:00 Hgb 15.6 gm/dL (12.6-17.4) 11/17/16 13:00 Hct 46.4 % (39.0-49.0) 11/17/16 13:00 MCV 90.1 fl (80-99) 11/17/16 13:00 MCH 30.2 pg (27.0-31.0) 11/17/16 13:00 MCHC Differential 33.6 pg (28.0-36.0) 11/17/16 13:00 RDW 12.3 % (11.5-20.0) 11/17/16 13:00 Plt Count 237 Th/cmm (150-400) 11/17/16 13:00 MPV 8.2 fl 11/17/16 13:00 Neutrophils % 70.4 % (40.0-80.0) 11/17/16 13:00 Lymphocytes % 19.5 % (20.0-50.0) L 11/17/16 13:00 Monocytes % 7.6 % (2.0-10.0) 11/17/16 13:00 Eosinophils % 2.3 % (0.0-5.0) 11/17/16 13:00 Basophils % 0.2 % (0.0-2.0) 11/17/16 13:00 Sodium 128 mEq/L (136-145) L 11/17/16 13:00 Potassium 4.2 mEq/L (3.5-5.1) 11/17/16 13:00 Chloride 100 mEq/L (98-107) 11/17/16 13:00 Carbon Dioxide 25.5 mEq/L (21.0-31.0) 11/17/16 13:00 Anion Gap 6.7 (7.0-16.0) L 11/17/16 13:00 BUN 15 mg/dL (7-25) 11/17/16 13:00 Creatinine 0.8 mg/dL (0.7-1.3) 11/17/16 13:00 Est GFR ( Amer) > 60.0 ml/min (>90) 11/17/16 13:00 Est GFR (Non-Af Amer) > 60.0 ml/min 11/17/16 13:00 BUN/Creatinine Ratio 18.8 11/17/16 13:00 Glucose 375 mg/dL (70-105) H 11/17/16 13:00 POC Glucose 157 MG/DL (70 - 105) H 12/02/16 06:37 Hemoglobin A1c % 10.6 % (4.0-6.0) H 11/17/16 13:00 Calcium 9.3 mg/dL (8.6-10.3) 11/17/16 13:00 Triglycerides 153 mg/dL (<150) H 11/17/16 13:00 Cholesterol 194 mg/dL (<200) 11/17/16 13:00 LDL Cholesterol Direct 151 mg/dL (75-193) 11/17/16 13:00 HDL Cholesterol 35 mg/dL (23-92) 11/17/16 13:00 TSH 2.64 uIU/ml (0.34-5.60) 11/17/16 13:00 Urine Source CLEAN C 11/17/16 13:05 Urine Color YELLOW 11/17/16 13:05 Urine Clarity CLEAR (CLEAR) 11/17/16 13:05 Urine pH 5.5 11/17/16 13:05 Ur Specific [place] 1.015 (1.005-1.030) 11/17/16 13:05 Urine Protein TRACE mg/dL (NEGATIVE) 11/17/16 13:05 Urine Glucose (UA) 500 mg/dL (NEGATIVE) H 11/17/16 13:05 Urine Ketones 15 mg/dL (NEGATIVE) H 11/17/16 13:05 Urine Blood NEGATIVE (NEGATIVE) 11/17/16 13:05 Urine Nitrate NEGATIVE (NEGATIVE) 11/17/16 13:05 Urine Bilirubin NEGATIVE (NEGATIVE) 11/17/16 13:05 Urine Urobilinogen 0.2 E.U./dL (0.2 - 1.0) 11/17/16 13:05 Ur Leukocyte Esterase NEGATIVE (NEGATIVE) 11/17/16 13:05 Urine RBC NONE SEEN /hpf (0-5) 11/17/16 13:05 Urine WBC 0-2 /hpf (0-5) 11/17/16 13:05 Ur Epithelial Cells RARE /lpf (FEW) 11/17/16 13:05 Urine Bacteria OCCASIONAL /hpf (NONE SEEN) 11/17/16 13:05 RPR NONREACTIVE (NONREACTIVE) 11/17/16 13:00 Hepatitis A IgM Ab Negative (Negative) 11/17/16 13:00 Hep Bs Antigen Negative (Negative) 11/17/16 13:00 Hep B Core IgM Ab Negative (Negative) 11/17/16 13:00 Hepatitis C Antibody <0.1 s/co ratio (0.0-0.9) 11/17/16 13:00 - Physical Exam Vitals and I&O: Vital Signs Temp 97.2 F 12/02/16 12:50 Pulse 80 12/02/16 12:50 Resp 20 12/02/16 12:50 BP 112/61 12/02/16 12:50 Pulse Ox 99 12/02/16 12:50 Intake & Output 12/01/16 12/02/16 12/02/16 18:59 06:59 18:59 Intake Total 950 120 Balance 950 120 Intake: Oral 950 120 Other: # Voids 3 3 # Bowel Movements 1 Stool Characteristics Soft Formed Active Medications: Current Medications Acetaminophen (Tylenol) 650 mg PO Q4H PRN PRN Reason: MILD PAIN OR TEMP > 101.0 Stop: 01/16/17 17:19 Al Hydrox/Mg Hydrox/Simethicone (Maalox) 30 ml PO Q6H PRN PRN Reason: DYSPEPSIA Stop: 01/16/17 17:19 Last Admin: 11/29/16 20:52 Dose: 30 ml Aspirin (Aspirin Chewable) 81 mg PO DAILY MANUEL Stop: 01/17/17 08:59 Last Admin: 12/02/16 09:04 Dose: 81 mg Atorvastatin Calcium (Lipitor) 20 mg PO HS MANUEL Stop: 01/16/17 20:59 Last Admin: 12/01/16 21:42 Dose: 20 mg Benazepril HCl (Lotensin) 20 mg PO DAILY MANUEL Stop: 01/17/17 08:59 Last Admin: 12/02/16 09:04 Dose: 20 mg Docusate Sodium (Colace) 250 mg PO DAILY [facility] Stop: 01/17/17 08:59 Last Admin: 12/02/16 09:04 Dose: 250 mg Haloperidol Decanoate (Haldol Dec) 25 mg IM QMONTH MANUEL PRN Reason: Protocol Stop: 01/22/17 12:59 Last Admin: 11/23/16 13:15 Dose: 25 mg Ibuprofen (Advil) 200 mg PO Q4H PRN PRN Reason: Pain (Mild) Stop: 01/16/17 17:54 Last Admin: 12/01/16 22:24 Dose: 200 mg Insulin Aspart (Novolog) 0 units SUBQ BIDAC MANUEL PRN Reason: Protocol Stop: 01/17/17 08:59 Last Admin: 12/02/16 06:42 Dose: Not Given Insulin Human Isoph/Insulin Regular (Novolin 70/30) 35 units SUBQ QPM MANUEL PRN Reason: Protocol Stop: 01/17/17 16:59 Last Admin: 12/01/16 17:23 Dose: 35 units Insulin Human NPH (Novolin N) 40 units SUBQ QAM MANUEL PRN Reason: Protocol Stop: 01/17/17 08:59 Last Admin: 12/02/16 09:05 Dose: 40 units Lorazepam (Ativan) 0.5 mg PO Q4HR PRN; Protocol PRN Reason: Anxiety Stop: 12/17/16 20:21 Last Admin: 11/27/16 08:52 Dose: 0.5 mg Magnesium Hydroxide (Milk Of Magnesia) 30 ml PO DAILY PRN PRN Reason: Constipation Stop: 01/16/17 17:19 Polyethylene Glycol (Miralax) 17 gm PO DAILY [facility] Stop: 01/17/17 08:59 Last Admin: 12/02/16 09:06 Dose: 17 gm Zolpidem Tartrate (Ambien) 5 mg PO HS PRN PRN Reason: Insomnia Stop: 01/16/17 20:21 Last Admin: 12/01/16 21:42 Dose: 5 mg Cardiovascular: Normal S1, Normal S2 Lungs: Clear to auscultation Assessment/Plan - Problem List Patient Problems: All Active Problems Bipolar 1 disorder (Acute) F31.9 HTN (hypertension) (Acute) I10 - Assessment Assessment: HTN DM II HYPERLIPIDEMIA PSYCH DISORDER - Plan Plan: Continue current meds. Blood sugar and BP seems fairly stable Contiinue Accuchek and DM meds Plan of care discussed with nursing staff Psych managment per psychiatrist Nutritional Asmnt/Malnutr-PDOC - Dietary Evaluation Malnutrition Findings (Please click <Entered> for more info): Nutritional Asmnt/Malnutrition Start: 11/18/16 14: 20 Text: Status: Complete Freq: Document 11/18/16 14:21 GSUN (Rec: 11/18/16 14:35 [email or web address] [email or web address]) Nutritional Asmnt/Malnutrition Patient General Information Nutritional Screening High Risk Screening Diagnosis Psychosis NOS Pertinent Medical Hx/Surgical Hx Schizoaffective disorder, hx alcohol abuse, HTN, DM, high cholesterol Subjective Information 66 year old male from SNF. Pt was asleep during visit, unable to be woken up. [facility] staff, pt appears forgetful, was refusing medications including insulin, needing explanation/reminder on purpose of insulin. Current Diet Order/ Nutrition Support CCHO, BECKA Pertinent Medications Maalox, Lipitor, Colace, Novolog, Novolin, MOM, Miralax Pertinent Labs 11/17: cholesterol 194, glucose 375, A1c 10.6 Nutritional Hx/Data Height 1.7 m Height (Calculated Centimeters) 170.2 Current Weight (lbs) 96.388 kg Weight (Calculated Kilograms) 96.4 Weight (Calculated Grams) 01803.4 [place] Body Weight 148 Weight Status Obese GI Symptoms Usual diet at home [facility] [place] Skin Integrity/Comment: Ady 18. Skin intact. Estimated Nutritional Goals Calories/Kcals/Kg [id number]/74.6kg Kcals Calculated 1805-2238kcal (25-30kcal/kg) Protein: Adj wt of IBW Protein Calculated 75g (1g/kg) Fluid: ml 1805-2238ml (1ml/kcal) Nutritional Problem 1. Problem Problem Altered nutrition related laboratory values related to Etiology DM aeb Signs/Symptoms: glucose 375, A1c 10.6 Intervention/Recommendation Comments 1. Recommend [id number]. Expected Outcomes/Goals Expected Outcomes/Goals 1. PO intake to meet at least 75% of estimated nutritional needs.
--- NOTE | 2016-12-02 22:45 | Discharge Summary ---
DATE OF DISCHARGE: 12/02/2016 IDENTIFYING INFORMATION: The patient is a 66-year-old male. REASON FOR CONSULTATION: The patient was referred by Dr. Gutierrez after seeing him there. He came from [place]. He was agitated, manic, and apparently, he was refusing to take his blood pressure medications as well as other medications. The patient himself was a poor historian. He was minimizing everything. He was irritable and easily agitated. He also . He said that he was not refusing the Haldol that he is supposed to be on and the staff was forgetting to give it to him, but he is refusing blood pressure medication and the statin medication. He was minimizing the events led to admission. He has been hospitalized many times, last hospitalized 5 years ago. He went to a senior living. However, he is not a very good historian, but he was hospitalized three times. He denies prior suicide attempt. COURSE IN THE HOSPITAL: The patient was diagnosed with schizoaffective disorder, history of alcohol abuse, also hypertension, diabetes mellitus, unable to walk, and high cholesterol. The patient was started back on his medications. Prior to admission, he was on Haldol Decanoate 25 mg every 2 weeks. The patient got the injection on 11/23/2016. He was continued with the rest of his medications, Lotensin, atorvastatin, aspirin, ibuprofen, insulin, magnesium polyethylene, and Ambien. The patient progressively got better. He was sleeping well and eating well. He stayed in bed all the time. He was not participating in any activity, internally preoccupied; however, he was not acting anyway dangerous. He was back taking his medication as he improved. He was no longer refusing medication. Sleeping well and eating well. We felt he could be discharged to a lesser level of care. ALLERGIES: The patient is allergic to AMPICILLIN. FINAL DIAGNOSES: AXIS I: Schizoaffective disorder. MEDICAL DIAGNOSES: Hypertension, diabetes mellitus, hypercholesterolemia, and gastroesophageal reflux disease. The patient will go back to [place] and will follow up with Dr. Gutierrez and primary care physician. EXPECTED OUTCOME: Stable if the patient complies with the above. JOB# [id number]
== END 2016-12-02 15:30 | DRG 885 ==
LOC: ER 12:20 → GERO 15:30
PROVIDERS: ADMIT Psychiatry & Neurology Psychiatry; ATTEND Psychiatry & Neurology Psychiatry
DX: F25.9 Schizoaffective disorder, unspecified (principal); E11.42 Type 2 diabetes mellitus with diabetic polyneuropathy; I10 Essential (primary) hypertension; E78.5 Hyperlipidemia, unspecified; I25.10 Atherosclerotic heart disease of native coronary artery without angina pectoris; M19.90 Unspecified osteoarthritis, unspecified site; G89.29 Other chronic pain; E66.9 Obesity, unspecified; K59.00 Constipation, unspecified; F31.9 Bipolar disorder, unspecified; Z82.49 Family history of ischemic heart disease and other diseases of the circulatory system; Z91.14 Patient's other noncompliance with medication regimen; Z88.1 Allergy status to other antibiotic agents; Z68.33 Body mass index [BMI] 33.0-33.9, adult
CPT/HCPCS: 36415-UA; 80048-TC; 80061-TC; 80074-90; 81001-TC; 82948-90; 83036-90; 84443-TC; 85025-TC; 86592-TC; 93005; J1631; J1815; Z7610